=== PATIENT | female | born 1975 | race African-American/Black ===

== ENCOUNTER 2018-08-24 08:44 | Emergency (ER) | payer SELFPAY ==
[~2018-08-24] VITALS: Ht 142.2 cm; Wt 52.2 kg
[2018-08-24] MEDS ORDERED: diphenhydrAMINE 50 MG/ML VIAL IVP ONE (09:15)
[2018-08-24] MEDS ORDERED: METOCLOPRAMIDE HCL 10 MG/2 ML VIAL. IV ONE (09:15)
[2018-08-24] MEDS ORDERED: KETOROLAC 30 MG/ML VIAL. IV ONE (09:15)
[2018-08-24] MEDS ORDERED: IV NORMAL SALINE 1000ML BAG 1,000 ML IV ONE (09:15)
[2018-08-24] MEDS ORDERED: METO10TA81 PO (10:38)
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
[2018-08-24 10:50] VITALS: BP 145/83
== END 2018-08-24 11:13 | disposition home or self-care (01) ==
LOC: ER 08:44
DX: G90.521 Complex regional pain syndrome I of right lower limb (principal); G90.511 Complex regional pain syndrome I of right upper limb
CPT/HCPCS: 96374; 96375; 99283; J1200; J1885; J2765; J7030

== ENCOUNTER 2018-10-06 20:07 | Emergency (ER) | payer SELFPAY ==
[~2018-10-06] VITALS: Ht 142.2 cm; Wt 52.2 kg
[~2018-10-06 20:07] MED LIST: METO10TA81 PO
[2018-10-06 20:33] VITALS: BP 145/83
[2018-10-06 20:49] LABS: BILIRUBIN,URINE NEGATIVE (NEG); CLARITY,URINE CLEAR; COLOR,URINE YELLOW; NITRITE,URINE NEGATIVE (NEG); PROTEIN,URINE NEGATIVE (NEG-TRACE); UROBILINOGEN,URINE 0.2 mg/dL (0.2 mg/dL)
[2018-10-06 20:55] LABS: BACTERIA,URINE FEW /HPF (0-FEW); SQUAMOUS EPITHELIAL CELL,UR MOD /LPF; TRICHOMONAS,URINE PRESENT
[2018-10-06] MEDS ORDERED: METR500T PO (21:39)
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
[2018-10-06] MEDS ORDERED: AZITHROMYCIN 250 MG TABLET. PO ONE (22:00)
[2018-10-06] MEDS ORDERED: FLUCONAZOLE 100 MG TABLET. PO ONE (22:00)
[2018-10-06] MEDS ORDERED: cefTRIAXone IM 250 MG VIAL IM ONE (22:00)
[2018-10-10 13:11] LABS: GC PROBE Negative (Negative)
== END 2018-10-06 22:10 | disposition home or self-care (01) ==
LOC: ER 20:07
DX: A59.09 Other urogenital trichomoniasis (principal); N73.8 Other specified female pelvic inflammatory diseases
CPT/HCPCS: 81001; 81025; 87086; 87491; 87591; 96372; 99283; J0696; Q0111; Q0144

== ENCOUNTER 2018-11-28 08:21 | Inpatient (IN) | payer SELFPAY ==
[~2018-11-28] VITALS: Ht 142.2 cm; Wt 51.9 kg
[~2018-11-28 08:21] MED LIST changes: +METR500T PO
[2018-11-28] MEDS ORDERED: IV NORMAL SALINE 1000ML BAG 1,000 ML IV SCH (09:23)
[2018-11-28] MEDS ORDERED: ONDANSETRON PF 4 MG/2 ML VIAL. IV ONE (09:30)
[2018-11-28] MEDS ORDERED: MORPHINE SULFATE 4 MG/ML VIAL. IV ONE (09:30)
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
[2018-11-28 09:58] LABS: BILIRUBIN,URINE NEGATIVE (NEG); CLARITY,URINE CLEAR; COLOR,URINE YELLOW; NITRITE,URINE NEGATIVE (NEG); PROTEIN,URINE NEGATIVE (NEG-TRACE); UROBILINOGEN,URINE 0.2 mg/dL (0.2 mg/dL)
[2018-11-28 09:59] LABS: FECAL OB PT POSITIVE (NEG)
[2018-11-28 10:00] LABS: BASO % 1 % (0-3); EOS % 1 % (0-3); HEMATOCRIT 35.4 % (36.0-47.0); HEMOGLOBIN 11.7 g/dL (12.0-15.5); LYMPH # 1.5 x10^3/uL (1.0-4.8); LYMPH % 40 % (24-48); MEAN CORPUSCULAR HEMOGLOBIN 27 pg (25-35); MEAN CORPUSCULAR HGB CONC 33 g/dL (31-37); MEAN CORPUSCULAR VOLUME 80 fL (79-100); MONO # 0.2 x10^3/uL (0.0-1.1); MONO % 6 % (0-9); NEUT % 52 % (31-73); PLATELET COUNT 239 x10^3/uL (140-400); RED BLOOD COUNT 4.41 x10^6/uL (3.50-5.40); RED CELL DISTRIBUTION WIDTH 15.9 % (11.5-14.5); WHITE BLOOD COUNT 3.7 x10^3/uL (4.0-11.0)
[2018-11-28 10:06] LABS: CALCIUM 8.7 mg/dL (8.5-10.1); CREATININE 0.8 mg/dL (0.6-1.0); GFR 95.6; POTASSIUM 3.9 mmol/L (3.5-5.1)
[2018-11-28 10:09] LABS: ALBUMIN 3.7 g/dL (3.4-5.0); TOTAL BILIRUBIN 0.3 mg/dL (0.2-1.0); TOTAL PROTEIN 7.3 g/dL (6.4-8.2)
[2018-11-28 10:10] LABS: PROTHROMBIN TIME PATIENT 12.9 SEC (11.7-14.0)
[2018-11-28 10:23] LABS: BACTERIA,URINE 0 /HPF (0-FEW); RBC,URINE 0 /HPF (0-2); SQUAMOUS EPITHELIAL CELL,UR MOD /LPF; WBC,URINE OCC /HPF (0-4)
[2018-11-28] MEDS ORDERED: IOHEXOL 300 MG/ML 100ML VIAL. IV ONE (10:30)
[2018-11-28] MEDS ORDERED: CONTRAST GIVEN. MC PRN (10:30)
--- NOTE | 2018-11-28 11:19 | RAD ---
CT of the abdomen and pelvis without comparison for abdominal pain. TECHNIQUE: Contiguous helical 5 mm axial images are obtained from the apex of the diaphragm to the pelvic floor. Sagittal and coronal reformations are evaluated. FINDINGS: The lung bases are clear. There is a punctate calcification in the spleen consistent with antecedent granulomatous disease. Within the liver, there is a small wedge-shaped area of hyperenhancement along the right lobe laterally seen best on axial image #23, which is likely a benign perfusion defect. Also within the right lobe of liver, segment 5, seen on axial image #18, is a 1 cm ovoid hypodensity with Hounsfield units of 44 consistent with soft tissue or complex fluid. Consider further evaluation with MRI to more definitively characterize these lesions. No evidence of cirrhosis. No intra or extrahepatic biliary ductal dilatation. Gallbladder is partially fluid distended and grossly unremarkable. Pancreas is normal in appearance. Bilateral adrenal glands are normal. Right kidney is normal. Left kidney is notable for a few small subcentimeter cystic lesions, likely benign. No free or loculated fluid collections in the abdomen or pelvis. Evaluation of large and small bowel is limited by lack of enteric contrast, however no areas of focal bowel wall thickening or bowel dilatation identified. The appendix is normal in appearance. There is fullness of the uterus, and coarse myometrial calcifications are likely due to a calcified uterine fibroid. There is fluid within the endometrium. There is unilateral pars defect at L5-S1 on the right, and there is some chronic distortion of the posterior aspect of the L5 vertebral body on this basis. No acute osseous abnormality and no osteoblastic or osteolytic bone lesions are seen. IMPRESSION: 1. Fullness and some indistinctness of the uterus and pelvic organs, which is nonspecific. If surgical cortical concern for pelvic pathology, consider further evaluation with pelvic ultrasound. 2. 1 cm hypodense peripheral right liver lesion and 1 cm hypodense segment 5 hepatic lesion. Both of these lesions are possibly benign, but are incompletely evaluated on this single phase examination. Consider further evaluation with MRI of the abdomen for more definitive characterization. 3. Calcified uterine fibroids. 4. Normal appendix. 5. 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 Electronically signed by: Fortino Ritter MD (11/28/2018 11:16 AM) [id number]
[2018-11-28] MEDS ORDERED: PANTOPRAZOLE 40 MG TABLET.DR. PO ONE (12:00)
[2018-11-28] MEDS ORDERED: MORPHINE SULFATE 4 MG/ML VIAL. IV PRN (12:30)
[2018-11-28] MEDS ORDERED: ONDANSETRON PF 4 MG/2 ML VIAL. IV PRN (12:30)
--- NOTE | 2018-11-28 14:52 | PDOC1 ---
History and Physical Date of Admission Date of Admission DATE: 11/28/18 TIME: 14:51 Identification/Chief Complaint Chief Complaint Rectal bleeding Source Source: Patient History of Present Illness History of Present Illness Ms Lang is a 43 y/o female w/ self-described PMHx HTN, ?seizure/RSD, uterine fibroids/menorrhagia, ?clotting disorder admitted through ED for rectal bleeding. 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 Associated w/ mild nausea, bloating, and feeling flatulent. Recently she has had constipation and after passing a hard stool yesterday she noted bright red blood on the toilet tissue and in the water. Occurred again today, so she sought emergency medical care She notes heartburn she treats w/ neo water. No dysphagia. No vomiting. No known PUD. Known hemorrhoid from childbirth in 1996 - further childbirths since. States she had a blood clot during one of her previous 5 pregnancies. No previous EGD or colonoscopy. H/o heavy periods with cramping and known uterine fibroids she describes as tumors first diagnosed at [facility] over 2 years ago, tried Depo-provera for 1 year w/ PCP, hasn't seen NETWORK PROGRAM MANAGER yet. Used to treat menstrual pain w/ Naproxen but stopped long ago. Has a maternal grandmother with colon cancer at 83, maternal uncle at age 63 and a paternal aunt with unknown cancer, otherwise no polyp history in any family member. Past Medical History Cardiovascular: HTN Past Surgical History Past Surgical History: Family History Family History: Grandparents (Maternal grandmother - colon cancer) Social History Smoke: No ALCOHOL: none Drugs: Marijuana Current Problem List Problem List Problems Medical Problems: (1) Rectal bleeding Status: Acute Current Medications Current Medications Current Medications Sodium Chloride 1,000 ml @ 1,000 mls/hr Q1H IV Last administered on 11/28/18at 09:42; Start 11/28/18 at 09:23; Stop 11/28/18 at 10:22; Status DC Morphine Sulfate (Morphine Sulfate) 4 mg 1X ONCE IV Last administered on 11/28/18at 09:45; Start 11/28/18 at 09:30; Stop 11/28/18 at 09:31; Status DC Ondansetron HCl (Zofran) 4 mg 1X ONCE IV Last administered on 11/28/18at 09:44; Start 11/28/18 at 09:30; Stop 11/28/18 at 09:31; Status DC Iohexol (Omnipaque 300 Mg/ml) 75 ml 1X ONCE IV Last administered on 11/28/18at 10:28; Start 11/28/18 at 10:30; Stop 11/28/18 at 10:31; Status DC Info (CONTRAST GIVEN -- Rx MONITORING) 1 each PRN DAILY PRN MC SEE COMMENTS; Start 11/28/18 at 10:30; Stop 11/30/18 at 10:29 Pantoprazole Sodium (Protonix) 40 mg 1X ONCE PO Last administered on 11/28/18at 11:57; Start 11/28/18 at 12:00; Stop 11/28/18 at 12:01; Status DC Ondansetron HCl (Zofran) 4 mg PRN Q8HRS PRN IV NAUSEA/VOMITING; Start 11/28/18 at 12:30; Stop 11/29/18 at 12:29 Morphine Sulfate (Morphine Sulfate) 4 mg PRN Q2HR PRN IV PAIN; Start 11/28/18 at 12:30; Stop 11/29/18 at 12:29 Active Scripts Active Flagyl (Metronidazole) 500 Mg Tablet 1 Tab PO BID Reglan (Metoclopramide Hcl) 10 Mg Tablet 1 Tab PO Q8HRS PRN Allergies Allergies: Coded Allergies: No Known Drug Allergies (Unverified , 10/01/14) ROS General: No: Chills, Night Sweats, Fatigue, Malaise, Appetite, Other PSYCHOLOGICAL ROS: No: Anxiety, Behavioral Disorder, Concentration difficultie, Decreased libido, Depression, Disorientation, Hallucinations, Hostility, Irritablity, Memory difficulties, Mood Swings, Obsessive thoughts, Physical abuse, Sexual abuse, Sleep disturbances, Suicidal ideation, Other Eyes: No Blurry vision, No Decreased vision, No Double vision, No Dry eyes, No Excessive tearing, No Eye Pain, No Itchy Eyes, No Loss of vision, No Photophobia, No Scotomata, No Uses contacts, No Uses glasses, No Other HEENT: No: Heacaches, Visual Changes, Hearing change, Nasal congestion, Nasal discharge, Oral lesions, Sinus pain, Sore Throat, Epistaxis, Sneezing, Snoring, Tinnitus, Vertigo, Vocal changes, Other ALLERGY AND IMMUNOLOGY: No: Hives, Insect Bite Sensitivity, Itchy/Watery Eyes, Nasal Congestion, Post Nasal Drip, Seasonal Allergies, Other Hematological and Lymphatic: YES: Bleeding Problems; No: Blood Clots, Blood Transfusions, Brusing, Night Sweats, Pallor, Swollen Lymph Nodes, Other ENDOCRINE: No: Breast Changes, Galactorrhea, Hair Pattern Changes, Hot Flashes, Malaise/lethargy, Mood Swings, Palpitations, Polydipsia/polyuria, Skin Changes, Temperature Intolerance, Unexpected Weight Changes, Other Breast: No New/Changing Breast Lumps, No Nipple changes, No Nipple discharge, No Other Respiratory: No: Cough, Hemoptysis, Orthopnea, Pleuritic Pain, Shortness of breath, SOB with excertion, Sputum Changes, Stridor, Tachypnea, Wheezing, Other Cardiovascular: No Chest Pain, No Palpitations, No Orthopnea, No Paroxysmal Noc. Dyspnea, No Edema, No Lt Headedness, No Other Gastrointestinal: No Nausea, No Vomiting, No Abdominal Pain, No Diarrhea, No Constipation, No Melena, No Hematochezia, No Other Genitourinary: No Dysuria, No Frequency, No Incontinence, No Hematuria, No Retention, No Discharge, No Urgency, No Pain, No Flank Pain, No Other, No , No , No , No , No , No , No Musculoskeletal: No Gait Disturbance, No Joint Pain, No Joint Stiffness, No Joint Swelling, No Muscle Pain, No Muscular Weakness, No Pain In:, No Swelling In:, No Other Neurological: No Behavorial Changes, No Bowel/Bladder ControlChng, No Confusion, No Dizziness, No Gait Disturbance, No Headaches, No Impaired Coord/balance, No Memory Loss, No Numbness/Tingling, No Seizures, No Speech Problems, No Tremors, No Visual Changes, No Weakness, No Other Skin: No Dry Skin, No Eczema, No Hair Changes, No Lumps, No Mole Changes, No Mottling, No Nail Changes, No Pruritus, No Rash, No Skin Lesion Changes, No Other, No Acne Physical Exam General: Alert, Oriented X3, Cooperative, No acute distress HEENT: Atraumatic, PERRLA, EOMI, Mucous membr. moist/pink Lungs: Clear to auscultation, Normal air movement Heart: S1S2, RRR Abdomen: Normal bowel sounds, Soft, No hepatosplenomegaly, No masses, Other (Epigastric tenderness) Rectal Exam: not examined Extremities: No clubbing, No cyanosis, No edema, Normal pulses, No tenderne ss/swelling Skin: No rashes, No breakdown, No significant lesion Neuro: Normal gait, Normal speech, Strength at 5/5 X4 ext, Normal tone, Sensation intact, Cranial nerves 3-12 NL, Reflexes 2+ Psych/Mental Status: Mental status NL, Mood NL Vitals Vitals Vital Signs Date Time Temp Pulse Resp B/P (MAP) Pulse Ox O2 Delivery O2 Flow Rate FiO2 11/28/18 13:00 60 18 161/100 (120) 99 Room Air 11/28/18 08:23 97.9 97.9 Labs Labs Laboratory Tests Test 11/28/18 09:20 11/28/18 09:25 11/28/18 09:30 11/28/18 09:36 Stool Occult Blood Positive (NEG) Urine Collection Type Unknown Urine Color Yellow Urine Clarity Clear Urine pH 6.0 Urine Specific [place] 1.025 Urine Protein Negative mg/dL (NEG-TRACE) Urine Glucose (UA) Negative mg/dL (NEG) Urine Ketones (Stick) Negative mg/dL (NEG) Urine Blood Negative (NEG) Urine Nitrite Negative (NEG) Urine Bilirubin Negative (NEG) Urine Urobilinogen Dipstick 0.2 mg/dL (0.2 mg/dL) Urine Leukocyte Esterase Negative (NEG) Urine RBC 0 /HPF (0-2) Urine WBC Occ /HPF (0-4) Urine Squamous Epithelial Cells Mod /LPF Urine Bacteria 0 /HPF (0-FEW) Urine Mucus Mod /LPF White Blood Count 3.7 x10^3/uL (4.0-11.0) Red Blood Count 4.41 x10^6/uL (3.50-5.40) Hemoglobin 11.7 g/dL (12.0-15.5) Hematocrit 35.4 % (36.0-47.0) Mean Corpuscular Volume 80 fL (79-100) Mean Corpuscular Hemoglobin 27 pg (25-35) Mean Corpuscular Hemoglobin Concent 33 g/dL (31-37) Red Cell Distribution Width 15.9 % (11.5-14.5) Platelet Count 239 x10^3/uL (140-400) Neutrophils (%) (Auto) 52 % (31-73) Lymphocytes (%) (Auto) 40 % (24-48) Monocytes (%) (Auto) 6 % (0-9) Eosinophils (%) (Auto) 1 % (0-3) Basophils (%) (Auto) 1 % (0-3) Neutrophils # (Auto) 2.0 x10^3uL (1.8-7.7) Lymphocytes # (Auto) 1.5 x10^3/uL (1.0-4.8) Monocytes # (Auto) 0.2 x10^3/uL (0.0-1.1) Eosinophils # (Auto) 0.0 x10^3/uL (0.0-0.7) Basophils # (Auto) 0.0 x10^3/uL (0.0-0.2) Prothrombin Time 12.9 SEC (11.7-14.0) Prothromb Time International Ratio 1.0 (0.8-1.1) Activated Partial Thromboplast Time 26 SEC (24-38) Sodium Level 140 mmol/L (136-145) Potassium Level 3.9 mmol/L (3.5-5.1) Chloride Level 104 mmol/L (98-107) Carbon Dioxide Level 23 mmol/L (21-32) Anion Gap 13 (6-14) Blood Urea Nitrogen 12 mg/dL (7-20) Creatinine 0.8 mg/dL (0.6-1.0) Estimated GFR (Cockcroft-Gault) 95.6 BUN/Creatinine Ratio 15 (6-20) Glucose Level 87 mg/dL (70-99) Calcium Level 8.7 mg/dL (8.5-10.1) Total Bilirubin 0.3 mg/dL (0.2-1.0) Aspartate Amino Transf (AST/SGOT) 32 U/L (15-37) Alanine Aminotransferase (ALT/SGPT) 24 U/L (14-59) Alkaline Phosphatase 41 U/L (46-116) Total Protein 7.3 g/dL (6.4-8.2) Albumin 3.7 g/dL (3.4-5.0) Albumin/Globulin Ratio 1.0 (1.0-1.7) Lipase 160 U/L (73-393) Bedside Urine HCG, Qualitative Hcg negative (Negative) Laboratory Tests Test 11/28/18 09:20 11/28/18 09:25 11/28/18 09:30 11/28/18 09:36 Stool Occult Blood Positive (NEG) Urine Collection Type Unknown Urine Color Yellow Urine Clarity Clear Urine pH 6.0 Urine Specific [place] 1.025 Urine Protein Negative mg/dL (NEG-TRACE) Urine Glucose (UA) Negative mg/dL (NEG) Urine Ketones (Stick) Negative mg/dL (NEG) Urine Blood Negative (NEG) Urine Nitrite Negative (NEG) Urine Bilirubin Negative (NEG) Urine Urobilinogen Dipstick 0.2 mg/dL (0.2 mg/dL) Urine Leukocyte Esterase Negative (NEG) Urine RBC 0 /HPF (0-2) Urine WBC Occ /HPF (0-4) Urine Squamous Epithelial Cells Mod /LPF Urine Bacteria 0 /HPF (0-FEW) Urine Mucus Mod /LPF White Blood Count 3.7 x10^3/uL (4.0-11.0) Red Blood Count 4.41 x10^6/uL (3.50-5.40) Hemoglobin 11.7 g/dL (12.0-15.5) Hematocrit 35.4 % (36.0-47.0) Mean Corpuscular Volume 80 fL (79-100) Mean Corpuscular Hemoglobin 27 pg (25-35) Mean Corpuscular Hemoglobin Concent 33 g/dL (31-37) Red Cell Distribution Width 15.9 % (11.5-14.5) Platelet Count 239 x10^3/uL (140-400) Neutrophils (%) (Auto) 52 % (31-73) Lymphocytes (%) (Auto) 40 % (24-48) Monocytes (%) (Auto) 6 % (0-9) Eosinophils (%) (Auto) 1 % (0-3) Basophils (%) (Auto) 1 % (0-3) Neutrophils # (Auto) 2.0 x10^3uL (1.8-7.7) Lymphocytes # (Auto) 1.5 x10^3/uL (1.0-4.8) Monocytes # (Auto) 0.2 x10^3/uL (0.0-1.1) Eosinophils # (Auto) 0.0 x10^3/uL (0.0-0.7) Basophils # (Auto) 0.0 x10^3/uL (0.0-0.2) Prothrombin Time 12.9 SEC (11.7-14.0) Prothromb Time International Ratio 1.0 (0.8-1.1) Activated Partial Thromboplast Time 26 SEC (24-38) Sodium Level 140 mmol/L (136-145) Potassium Level 3.9 mmol/L (3.5-5.1) Chloride Level 104 mmol/L (98-107) Carbon Dioxide Level 23 mmol/L (21-32) Anion Gap 13 (6-14) Blood Urea Nitrogen 12 mg/dL (7-20) Creatinine 0.8 mg/dL (0.6-1.0) Estimated GFR (Cockcroft-Gault) 95.6 BUN/Creatinine Ratio 15 (6-20) Glucose Level 87 mg/dL (70-99) Calcium Level 8.7 mg/dL (8.5-10.1) Total Bilirubin 0.3 mg/dL (0.2-1.0) Aspartate Amino Transf (AST/SGOT) 32 U/L (15-37) Alanine Aminotransferase (ALT/SGPT) 24 U/L (14-59) Alkaline Phosphatase 41 U/L (46-116) Total Protein 7.3 g/dL (6.4-8.2) Albumin 3.7 g/dL (3.4-5.0) Albumin/Globulin Ratio 1.0 (1.0-1.7) Lipase 160 U/L (73-393) Bedside Urine HCG, Qualitative Hcg negative (Negative) Images Images CT Abdomen/pelvis - 1. Fullness and some indistinctness of the uterus and pelvic organs, which is nonspecific. If surgical cortical concern for pelvic pathology, consider further evaluation with pelvic ultrasound. 2. 1 cm hypodense peripheral right liver lesion and 1 cm hypodense segment 5 hepatic lesion. Both of these lesions are possibly benign, but are incompletely evaluated on this single phase examination. Consider further evaluation with MRI of the abdomen for more definitive characterization. 3. Calcified uterine fibroids. 4. Normal appendix. 5. 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 VTE Prophylaxis Ordered VTE Prophylaxis Devices: No VTE Pharmacological Prophylaxi: No Assessment/Plan Assessment/Plan A/P: Rectal bleeding - occult positive, hemorrhoids noted by ED rectal examination. Likely hemorrhoidal or diverticular. clear liquids tonight w/ PPI and Miralax. Observe for recurrent bleeding and monitor labs. Consider outpt colonoscopy Anemia - MCV 80, fecal occult +; h/o menorrhagia and uterine fibroids, will give iron Chronic abdominal pain - likely 2/2 fibroids. Gi cocktail for epigastric pain. bowel regimen for constipation Fibroids - noted on CT Daily marijuana use - counseled to quit FEN - Clear liquid diet PPX - SCDs FULL CODE Inpatient for lower GI bleeding ZAIRE MILLER MD Nov 28, 2018 14:52
[2018-11-28 15:00] VITALS: BP 147/83
--- NOTE | 2018-11-28 16:49 | PDOC2 ---
GI CONSULT Reason For Consult: Rectal bleeding HPI: HPI: 43 y/o female admitted through ER. Yesterday began having crampy/tight pain in upper abdomen while at work. Constant, might be worse w/ eating. Has a long h/o this pain - can occur daily and is no different than usual. Associated w/ mild nausea, bloating, and feeling "gassy." Typically no issues w/ constipation, but yesterday passed "pebble stools" and noted bright red blood on the toilet tissue and in the water. Occurred again today which prompted ER visit. H/o heartburn recently treated w/ neo water. No dysphagia. No vomiting. Lost weight recently but has gained some back. No diarrhea. No melena. Known hemorrhoid from childbirth in 1996 - has never bled, just hurts sometimes. No previous EGD or colonoscopy. No GB, liver, pancreas, or PUD history. H/o heavy periods (first two days changes pad every hour) w/ cramping (can't get out of bed for two days) and known uterine fibroids (diagnosed @ [facility], tried Depo for awhile w/ PCP, hasn't seen PNEUMATIC DEICER INSPECTOR). Used to treat menstrual pain w/ Naproxen but stopped long ago. ?additional h/o clotting disorder [place] PMH: PMH: HTN, ?seizure/RSD, uterine fibroids/menorrhagia, ?clotting disorder FH: Family History: Cancer (grandmother and uncler - colon) Social History: Smoke: No ALCOHOL: social Drugs: Marijuana ROS: GEN: +fatigue HEENT: Denies blurred vision, sore throat CV: Denies chest pain RESP: Denies shortness of air, cough GI: Per HPI : Denies hematuria, dysuria ENDO: +weight gain NEURO: Denies confusion, dizziness MSK: Denies weakness, joint pain/swelling SKIN: Denies jaundice, pruritus Vitals: Vitals: Vital Signs Date Time Temp Pulse Resp B/P (MAP) Pulse Ox O2 Delivery O2 Flow Rate FiO2 11/28/18 15:00 98.1 76 23 147/83 (104) 98 Room Air 98.1 Labs: Labs: Laboratory Tests Test 11/28/18 09:20 11/28/18 09:25 11/28/18 09:30 11/28/18 09:36 Stool Occult Blood Positive (NEG) Urine Collection Type Unknown Urine Color Yellow Urine Clarity Clear Urine pH 6.0 Urine Specific [place] 1.025 Urine Protein Negative mg/dL (NEG-TRACE) Urine Glucose (UA) Negative mg/dL (NEG) Urine Ketones (Stick) Negative mg/dL (NEG) Urine Blood Negative (NEG) Urine Nitrite Negative (NEG) Urine Bilirubin Negative (NEG) Urine Urobilinogen Dipstick 0.2 mg/dL (0.2 mg/dL) Urine Leukocyte Esterase Negative (NEG) Urine RBC 0 /HPF (0-2) Urine WBC Occ /HPF (0-4) Urine Squamous Epithelial Cells Mod /LPF Urine Bacteria 0 /HPF (0-FEW) Urine Mucus Mod /LPF White Blood Count 3.7 x10^3/uL (4.0-11.0) Red Blood Count 4.41 x10^6/uL (3.50-5.40) Hemoglobin 11.7 g/dL (12.0-15.5) Hematocrit 35.4 % (36.0-47.0) Mean Corpuscular Volume 80 fL (79-100) Mean Corpuscular Hemoglobin 27 pg (25-35) Mean Corpuscular Hemoglobin Concent 33 g/dL (31-37) Red Cell Distribution Width 15.9 % (11.5-14.5) Platelet Count 239 x10^3/uL (140-400) Neutrophils (%) (Auto) 52 % (31-73) Lymphocytes (%) (Auto) 40 % (24-48) Monocytes (%) (Auto) 6 % (0-9) Eosinophils (%) (Auto) 1 % (0-3) Basophils (%) (Auto) 1 % (0-3) Neutrophils # (Auto) 2.0 x10^3uL (1.8-7.7) Lymphocytes # (Auto) 1.5 x10^3/uL (1.0-4.8) Monocytes # (Auto) 0.2 x10^3/uL (0.0-1.1) Eosinophils # (Auto) 0.0 x10^3/uL (0.0-0.7) Basophils # (Auto) 0.0 x10^3/uL (0.0-0.2) Prothrombin Time 12.9 SEC (11.7-14.0) Prothromb Time International Ratio 1.0 (0.8-1.1) Activated Partial Thromboplast Time 26 SEC (24-38) Sodium Level 140 mmol/L (136-145) Potassium Level 3.9 mmol/L (3.5-5.1) Chloride Level 104 mmol/L (98-107) Carbon Dioxide Level 23 mmol/L (21-32) Anion Gap 13 (6-14) Blood Urea Nitrogen 12 mg/dL (7-20) Creatinine 0.8 mg/dL (0.6-1.0) Estimated GFR (Cockcroft-Gault) 95.6 BUN/Creatinine Ratio 15 (6-20) Glucose Level 87 mg/dL (70-99) Calcium Level 8.7 mg/dL (8.5-10.1) Total Bilirubin 0.3 mg/dL (0.2-1.0) Aspartate Amino Transf (AST/SGOT) 32 U/L (15-37) Alanine Aminotransferase (ALT/SGPT) 24 U/L (14-59) Alkaline Phosphatase 41 U/L (46-116) Total Protein 7.3 g/dL (6.4-8.2) Albumin 3.7 g/dL (3.4-5.0) Albumin/Globulin Ratio 1.0 (1.0-1.7) Lipase 160 U/L (73-393) Bedside Urine HCG, Qualitative Hcg negative (Negative) Allergies: Coded Allergies: No Known Drug Allergies (Unverified , 10/01/14) Medications: Current Medications Medications (Trade) Dose Ordered Sig/Essence Route PRN Reason Start Time Stop Time Status Last Admin Dose Admin Sodium Chloride 1,000 ml @ 1,000 mls/hr Q1H IV 11/28/18 09:23 11/28/18 10:22 DC 11/28/18 09:42 Morphine Sulfate (Morphine Sulfate) 4 mg 1X ONCE IV 11/28/18 09:30 11/28/18 09:31 DC 11/28/18 09:45 Ondansetron HCl (Zofran) 4 mg 1X ONCE IV 11/28/18 09:30 11/28/18 09:31 DC 11/28/18 09:44 Iohexol (Omnipaque 300 Mg/ml) 75 ml 1X ONCE IV 11/28/18 10:30 11/28/18 10:31 DC 11/28/18 10:28 Pantoprazole Sodium (Protonix) 40 mg 1X ONCE PO 11/28/18 12:00 11/28/18 12:01 DC 11/28/18 11:57 Morphine Sulfate (Morphine Sulfate) 4 mg PRN Q2HR PRN IV PAIN 11/28/18 12:30 11/29/18 12:29 11/28/18 14:51 Imaging: Imaging: CT A/P w/ IV contrast FINDINGS: The lung bases are clear. There is a punctate calcification in the spleen consistent with antecedent granulomatous disease. Within the liver, there is a small wedge-shaped area of hyperenhancement along the right lobe laterally seen best on axial image #23, which is likely a benign perfusion defect. Also within the right lobe of liver, segment 5, seen on axial image #18, is a 1 cm ovoid hypodensity with Hounsfield units of 44 consistent with soft tissue or complex fluid. Consider further evaluation with MRI to more definitively characterize these lesions. No evidence of cirrhosis. No intra or extrahepatic biliary ductal dilatation. Gallbladder is partially fluid distended and grossly unremarkable. Pancreas is normal in appearance. Bilateral adrenal glands are normal. Right kidney is normal. Left kidney is notable for a few small subcentimeter cystic lesions, likely benign. No free or loculated fluid collections in the abdomen or pelvis. Evaluation of large and small bowel is limited by lack of enteric contrast, however no areas of focal bowel wall thickening or bowel dilatation identified. The appendix is normal in appearance. There is fullness of the uterus, and coarse myometrial calcifications are likely due to a calcified uterine fibroid. There is fluid within the endometrium. There is unilateral pars defect at L5-S1 on the right, and there is some chronic distortion of the posterior aspect of the L5 vertebral body on this basis. No acute osseous abnormality and no osteoblastic or osteolytic bone lesions are seen. IMPRESSION: 1. Fullness and some indistinctness of the uterus and pelvic organs, which is nonspecific. If surgical cortical concern for pelvic pathology, consider further evaluation with pelvic ultrasound. 2. 1 cm hypodense peripheral right liver lesion and 1 cm hypodense segment 5 hepatic lesion. Both of these lesions are possibly benign, but are incompletely evaluated on this single phase examination. Consider further evaluation with MRI of the abdomen for more definitive characterization. 3. Calcified uterine fibroids. 4. Normal appendix. 5. 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 PE: GEN: NAD HEENT: Atraumatic, PERRL LUNGS: CTAB HEART: RRR ABD: NABS, soft, possible mild distention, epigastric tenderness, also some BLQ - mild EXTREMITY: No edema SKIN: No rashes, no jaundice NEURO/PSYCH: A & O 3 A/P: A/P: Rectal bleeding Anemia - MCV 80, fecal occult +; h/o menorrhagia and uterine fibroids Chronic abd pain, bloating, heartburn Abnormal CT - nonspecific fullness/indistinctness of uterus and pelvic organs, hepatic lesions, uterine fibroids CRC screen, FH colon cancer (grandmother and uncle) H/o NSAID use - quit years ago Daily marijuana use -- Hgb is stable compared to labs from 2015, BUN normal. Try clear liquids tonight w/ PPI and Miralax. Observe for recurrent bleeding and monitor labs. Consider outpt colonoscopy w/ tandem EGD re: chronic epigastric pain and bloating. ?PNEUMATIC DEICER INSPECTOR opinion/pelv US Could also consider RUQ US re: further eval of hepatic lesions on CT (which would also r/o gallbladder issue w/ her chronic upper abd symptoms - GB was un remarkable on CT) or could pursue MRI as outpt as recommended on CT report. PATY MENDEZ Nov 28, 2018 16:49
[2018-11-28] MEDS ORDERED: POLYETHYLENE GLYCOL 3350 17 GM PACKET. PO SCH (17:00)
[2018-11-28] MEDS ORDERED: POLYETHYLENE GLYCOL 3350 17 GM PACKET. PO PRN (17:00)
[2018-11-28] MEDS ORDERED: ACETAMINOPHEN 325 MG TABLET. PO PRN (17:00)
[2018-11-28] MEDS ORDERED: KETOROLAC 30 MG/ML VIAL. IV PRN (17:00)
[2018-11-28] MEDS ORDERED: SENNOSIDES/DOCUSATE 8.6/50MG TABLET. PO PRN (17:00)
[2018-11-28] MEDS ORDERED: LIDO:MAALOX 1:1 20 ML SINGLE DOSE. PO PRN ×2 (17:00)
[2018-11-28] MEDS: IV RINGERS,LACTATED 1000ML 1,000 ML IV SCH (17:08)
[2018-11-28] MEDS: PSYLLIUM HUSK (SUGAR FREE) 1 PKT PACKET PO SCH (17:08)
[2018-11-28] MEDS: POLYETHYLENE GLYCOL 3350 17 GM PACKET. PO SCH (17:08)
[2018-11-28] MEDS: PANTOPRAZOLE 40 MG TABLET.DR. PO SCH (17:08)
[2018-11-28] MEDS ORDERED: MAGNESIUM CITRATE 296 ML SOLUTION. PO ONE (17:30)
[2018-11-28 19:00] VITALS: BP 206/98
[2018-11-28 23:00] VITALS: BP 157/96
[2018-11-29 04:11] VITALS: BP 154/87
[2018-11-29] MEDS: IV RINGERS,LACTATED 1000ML 1,000 ML IV SCH (05:13)
[2018-11-29 06:12] LABS: HEMATOCRIT 35.7 % (36.0-47.0); RED BLOOD COUNT 4.44 x10^6/uL (3.50-5.40); RED CELL DISTRIBUTION WIDTH 15.9 % (11.5-14.5); WHITE BLOOD COUNT 3.8 x10^3/uL (4.0-11.0)
[2018-11-29 07:15] VITALS: BP 158/88
[2018-11-29] MEDS: PANTOPRAZOLE 40 MG TABLET.DR. PO SCH (08:11)
[2018-11-29] MEDS: PSYLLIUM HUSK (SUGAR FREE) 1 PKT PACKET PO SCH (08:14)
[2018-11-29] MEDS: POLYETHYLENE GLYCOL 3350 17 GM PACKET. PO SCH (08:15)
--- NOTE | 2018-11-29 08:46 | NUR ---
SW following pt for anticipated dc needs. Chart reviewed. Pt is from home with family. Pt is self pay and no dc recommendation noted at this time.
--- NOTE | 2018-11-29 09:43 | PDOC ---
Subjective: Subjective: Has had three stools without blood. Tolerating clears, would like more to eat. Would like to take a shower. Still has some upper abd discomfort - GI cocktail maybe helped but maybe not. Objective: Vital Signs: Vital Signs Date Time Temp Pulse Resp B/P (MAP) Pulse Ox O2 Delivery O2 Flow Rate FiO2 11/29/18 08:00 Room Air 11/29/18 07:15 98.2 65 18 158/88 (111) 99 98.2 Labs: Laboratory Tests Test 11/29/18 06:05 White Blood Count 3.8 x10^3/uL Red Blood Count 4.44 x10^6/uL Hemoglobin 12.0 g/dL Hematocrit 35.7 % Mean Corpuscular Volume 80 fL Mean Corpuscular Hemoglobin 27 pg Mean Corpuscular Hemoglobin Concent 34 g/dL Red Cell Distribution Width 15.9 % Platelet Count 229 x10^3/uL PE: GEN: NAD LUNGS: CTAB HEART: RRR ABD: soft, not particularly tender currently NEURO/PSYCH: A & O 3 A/P: Rectal bleeding - resolved, Hgb normal today Chronic dyspepsia Uterine fibroids -- ADAT - d/w RN. Consider DC if tolerates. Continue Miralax or similar PRN. Would also continue PPI. Follow-up w/ HEEL ROOM SUPERVISOR and GI as outpt - consider EGD/colonoscopy, US, MRI, etc. as previously discussed. PATY MENDEZ Nov 29, 2018 09:43
[2018-11-29] MEDS ORDERED: Pantoprazole PO (10:34)
[2018-11-29] MEDS ORDERED: POLY17PO28 PO (10:34)
--- NOTE | 2018-11-29 10:36 | PDOC3 ---
Discharge Summary Visit Information Date of Admission: Nov 28, 2018 Date of Discharge: Nov 29, 2018 Final Diagnosis Rectal bleeding - hemorrhoids Anemia - MCV 80, fecal occult +; Chronic abdominal pain - Fibroids - Daily marijuana use - Problems Medical Problems: (1) Rectal bleeding Status: Acute Brief Hospital Course Allergies Allergies Coded Allergies Type Severity Reaction Last Updated Verified No Known Drug Allergies 10/01/14 No Vital Signs Vital Signs Date Time Temp Pulse Resp B/P (MAP) Pulse Ox O2 Delivery O2 Flow Rate FiO2 11/29/18 08:00 Room Air 11/29/18 07:15 98.2 65 18 158/88 (111) 99 98.2 Lab Results Laboratory Tests Test 11/28/18 09:20 11/28/18 09:25 11/28/18 09:30 11/28/18 09:36 Stool Occult Blood Positive (NEG) Urine Collection Type Unknown Urine Color Yellow Urine Clarity Clear Urine pH 6.0 Urine Specific [place] 1.025 Urine Protein Negative mg/dL (NEG-TRACE) Urine Glucose (UA) Negative mg/dL (NEG) Urine Ketones (Stick) Negative mg/dL (NEG) Urine Blood Negative (NEG) Urine Nitrite Negative (NEG) Urine Bilirubin Negative (NEG) Urine Urobilinogen Dipstick 0.2 mg/dL (0.2 mg/dL) Urine Leukocyte Esterase Negative (NEG) Urine RBC 0 /HPF (0-2) Urine WBC Occ /HPF (0-4) Urine Squamous Epithelial Cells Mod /LPF Urine Bacteria 0 /HPF (0-FEW) Urine Mucus Mod /LPF White Blood Count 3.7 x10^3/uL (4.0-11.0) Red Blood Count 4.41 x10^6/uL (3.50-5.40) Hemoglobin 11.7 g/dL (12.0-15.5) Hematocrit 35.4 % (36.0-47.0) Mean Corpuscular Volume 80 fL (79-100) Mean Corpuscular Hemoglobin 27 pg (25-35) Mean Corpuscular Hemoglobin Concent 33 g/dL (31-37) Red Cell Distribution Width 15.9 % (11.5-14.5) Platelet Count 239 x10^3/uL (140-400) Neutrophils (%) (Auto) 52 % (31-73) Lymphocytes (%) (Auto) 40 % (24-48) Monocytes (%) (Auto) 6 % (0-9) Eosinophils (%) (Auto) 1 % (0-3) Basophils (%) (Auto) 1 % (0-3) Neutrophils # (Auto) 2.0 x10^3uL (1.8-7.7) Lymphocytes # (Auto) 1.5 x10^3/uL (1.0-4.8) Monocytes # (Auto) 0.2 x10^3/uL (0.0-1.1) Eosinophils # (Auto) 0.0 x10^3/uL (0.0-0.7) Basophils # (Auto) 0.0 x10^3/uL (0.0-0.2) Prothrombin Time 12.9 SEC (11.7-14.0) Prothromb Time International Ratio 1.0 (0.8-1.1) Activated Partial Thromboplast Time 26 SEC (24-38) Sodium Level 140 mmol/L (136-145) Potassium Level 3.9 mmol/L (3.5-5.1) Chloride Level 104 mmol/L (98-107) Carbon Dioxide Level 23 mmol/L (21-32) Anion Gap 13 (6-14) Blood Urea Nitrogen 12 mg/dL (7-20) Creatinine 0.8 mg/dL (0.6-1.0) Estimated GFR (Cockcroft-Gault) 95.6 BUN/Creatinine Ratio 15 (6-20) Glucose Level 87 mg/dL (70-99) Calcium Level 8.7 mg/dL (8.5-10.1) Total Bilirubin 0.3 mg/dL (0.2-1.0) Aspartate Amino Transf (AST/SGOT) 32 U/L (15-37) Alanine Aminotransferase (ALT/SGPT) 24 U/L (14-59) Alkaline Phosphatase 41 U/L (46-116) Total Protein 7.3 g/dL (6.4-8.2) Albumin 3.7 g/dL (3.4-5.0) Albumin/Globulin Ratio 1.0 (1.0-1.7) Lipase 160 U/L (73-393) Bedside Urine HCG, Qualitative Hcg negative (Negative) Test 11/29/18 06:05 White Blood Count 3.8 x10^3/uL (4.0-11.0) Red Blood Count 4.44 x10^6/uL (3.50-5.40) Hemoglobin 12.0 g/dL (12.0-15.5) Hematocrit 35.7 % (36.0-47.0) Mean Corpuscular Volume 80 fL (79-100) Mean Corpuscular Hemoglobin 27 pg (25-35) Mean Corpuscular Hemoglobin Concent 34 g/dL (31-37) Red Cell Distribution Width 15.9 % (11.5-14.5) Platelet Count 229 x10^3/uL (140-400) Laboratory Tests Test 11/29/18 06:05 White Blood Count 3.8 x10^3/uL (4.0-11.0) Red Blood Count 4.44 x10^6/uL (3.50-5.40) Hemoglobin 12.0 g/dL (12.0-15.5) Hematocrit 35.7 % (36.0-47.0) Mean Corpuscular Volume 80 fL (79-100) Mean Corpuscular Hemoglobin 27 pg (25-35) Mean Corpuscular Hemoglobin Concent 34 g/dL (31-37) Red Cell Distribution Width 15.9 % (11.5-14.5) Platelet Count 229 x10^3/uL (140-400) Brief Hospital Course Ms. Lang is a 43 old admit for blood in stool, hgb stable 3 stools here. DC home, stool softener Discharge Information Condition at Discharge: Improved Follow Up: Weeks Disposition/Orders: D/C to Home Scheduled Polyethylene Glycol 3350 (Polyethylene Glycol 3350) 17 Gm Powd.pack, 17 GM PO DAILY for constipation, #30 Prescribed by: SONNY ROSENBAUM on 11/29/18 1034 [Pantoprazole] 40 MG TABLET.DR, 40 MG PO DAILYAC, #30 Prescribed by: SONNY ROSENBAUM on 11/29/18 1034 Scheduled PRN Metoclopramide Hcl (Reglan) 10 Mg Tablet, 1 TAB PO Q8HRS PRN for migraine, #30 Prescribed by: ALEJANDRA HYMAN D.O. on 08/24/18 1038 Discontinued Medications Metronidazole (Flagyl) 500 Mg Tablet, 1 TAB PO BID, #14 Prescribed by: MANISHA DENTON D.O. on 10/06/182138 SONNY ROSENBAUM MD Nov 29, 2018 10:36
[2018-11-29] MEDS ORDERED: DOCU-109 PO (10:38)
[2018-11-29] MEDS ORDERED: FERR325T14 PO (10:38)
[2018-11-29 10:49] VITALS: BP 150/85
--- NOTE | 2018-11-29 13:04 | NUR ---
Discharge Note: PT DISCHARGED HOME WITH SELF CARE. PT LEFT FACILITY VIA PRIVATE VEHICLE WITH MOTHER AT 1300. PT STABLE AND ALERT UPON DISCHARGE. PT PIV TO LUE REMOVED WITHOUT COMPLICATIONS WITH BANDAGE APPLIED. PT EDUCATED ABOUT DISCHARGE MEDICATIONS, DISCHARGE INSTRUCTIONS, AND FOLLOW-UP INSTRUCTIONS. NO CONCERNS VOICED AT THIS TIME. MARCE JONES Discharge instructions and discharge home medications reviewed with Patient and a copy given. All questions have been answered and understanding verbalized.
== END 2018-11-29 13:07 | disposition home or self-care (01) | DRG 394 ==
LOC: ER 08:21 → 5 NORTH 11:46
PROVIDERS: ADMIT Internal Medicine; ATTEND Internal Medicine
DX: K64.4 Residual hemorrhoidal skin tags (principal); K62.5 Hemorrhage of anus and rectum; D25.9 Leiomyoma of uterus, unspecified; D64.9 Anemia, unspecified; F12.90 Cannabis use, unspecified, uncomplicated; G89.29 Other chronic pain; I10 Essential (primary) hypertension; K59.00 Constipation, unspecified; K76.9 Liver disease, unspecified; N92.0 Excessive and frequent menstruation with regular cycle; R56.9 Unspecified convulsions; Z80.0 Family history of malignant neoplasm of digestive organs; Z79.899 Other long term (current) drug therapy
CPT/HCPCS: 36415; 74177; 80053; 81001; 81025; 82274; 83690; 85025; 85027; 85610; 85730; 96361; 96374; 96375; J2270; J2405; J7030; J7120; Q9967; 99285-25

== ENCOUNTER 2019-09-05 23:45 | Emergency (ER) | payer SELFPAY ==
[~2019-09-05] VITALS: Ht 142.2 cm; Wt 50.0 kg
[~2019-09-05 23:45] MED LIST changes: +DOCU-109 PO; +FERR325T14 PO; +POLY17PO28 PO; +Pantoprazole PO
[2019-09-06 00:09] LABS: BASO # 0.1 x10^3/uL (0.0-0.2); BASO % 1 % (0-3); EOS % 1 % (0-3); HEMATOCRIT 32.3 % (36.0-47.0); HEMOGLOBIN 10.9 g/dL (12.0-15.5); LYMPH # 2.8 x10^3/uL (1.0-4.8); LYMPH % 58 % (24-48); MEAN CORPUSCULAR HEMOGLOBIN 27 pg (25-35); MEAN CORPUSCULAR HGB CONC 34 g/dL (31-37); MEAN CORPUSCULAR VOLUME 81 fL (79-100); MONO # 0.4 x10^3/uL (0.0-1.1); MONO % 7 % (0-9); NEUT # 1.6 x10^3/uL (1.8-7.7); NEUT % 33 % (31-73); PLATELET COUNT 283 x10^3/uL (140-400); RED BLOOD COUNT 4.01 x10^6/uL (3.50-5.40); RED CELL DISTRIBUTION WIDTH 15.8 % (11.5-14.5); WHITE BLOOD COUNT 4.9 x10^3/uL (4.0-11.0)
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
[2019-09-06 00:40] LABS: CALCIUM 8.6 mg/dL (8.5-10.1); GFR 73.9; POTASSIUM 3.5 mmol/L (3.5-5.1)
[2019-09-06 00:47] LABS: ALBUMIN 3.5 g/dL (3.4-5.0); TOTAL PROTEIN 7.1 g/dL (6.4-8.2)
[2019-09-06 00:48] LABS: TOTAL BILIRUBIN 0.3 mg/dL (0.2-1.0)
[2019-09-06 00:54] VITALS: BP 163/95
== END 2019-09-06 01:15 | disposition home or self-care (01) ==
LOC: ER 23:45
DX: R56.9 Unspecified convulsions (principal); I10 Essential (primary) hypertension; F12.90 Cannabis use, unspecified, uncomplicated; Z87.891 Personal history of nicotine dependence
CPT/HCPCS: 36415; 80053; 85025; 99283